=== PATIENT | male | born 1945 | race Caucasian/White ===

== ENCOUNTER → 2021-11-26 | Day surgery (SDC) | payer OTHER, MEDICARE ==
[~2021-11-26] VITALS: Ht 185.4 cm; Wt 174.7 kg
[~2021-11-26] MED LIST: ALPHA LIPOIC A200 M1 PO; BUMETANIDE2 MG PO; FLOMAX0.4 MG PO; HYDRALAZINE25 MG PO; INHALER; LANTUS **100 UNITS/ SC; LIPITOR40 M1 PO; LOVENOX40 MG/0.4 SQ; METOPROLOL SUC200 MG PO; NOVOLOG VI100 UNIT/1 SC; PROSCAR5 MG PO; ROCALTROL 0.0.25 MCG PO; VITAMIN D-40010 MCG PO; WARFARIN SODIUM10 MG PO; [UNRECOGNIZED DRUG - REMARK]
[2021-11-26 08:10] LABS: INR 1.31 (0.9-1.2); PROTHROMBIN TIME 15.6 SECONDS (11.8-13.4)
[2021-11-26 08:16] LABS: ALBUMIN 3.5 g/dL (3.4-5.0); BILIRUBIN - TOTAL 1.9 mg/dL (0.2-1.0); CREATININE 1.5 mg/dL (0.67-1.17); GLOBULIN (CALCULATION) 3.8 g/dL; POTASSIUM 3.7 mmol/L (3.5-5.1); TOTAL PROTEIN 7.3 g/dL (6.4-8.2)
== END | disposition home or self-care (01) ==
LOC: FAS 06:58
PROVIDERS: Surgery
DX: Z12.11 Encounter for screening for malignant neoplasm of colon (principal); D12.3 Benign neoplasm of transverse colon; K62.1 Rectal polyp; K57.30 Diverticulosis of large intestine without perforation or abscess without bleeding; I86.8 Varicose veins of other specified sites; Z79.4 Long term (current) use of insulin; Z79.02 Long term (current) use of antithrombotics/antiplatelets
CPT/HCPCS: 36415; 80053; 85610; 85730; J2250; J2704; J7120